=== PATIENT | male | born 1950 | race Caucasian/White ===

== ENCOUNTER 2017-09-06 08:06 | Day surgery (SDC) | payer MEDICARE ==
[2017-09-05 08:46] VITALS: BMI 29.1
[~2017-09-06 08:06] MED LIST: LACTATED RINGERS 1,000 ML IV SCH
[2017-09-06 08:45] VITALS: TEMP 98.1
[2017-09-06] MEDS ORDERED: LIDOCAINE 1% 20 ML VIAL (10MG/ML) FOR IV START INTRADERMA ONE (08:45)
[2017-09-06] MEDS ORDERED: LIDOCAINE 1% INJ 10MG/ML (20 ML MDV) ONE (08:55)
[2017-09-06] MEDS ORDERED: PROPOFOL 10 MG/ML 20 ML VIAL IV ONE (08:55)
--- NOTE | 2017-09-06 09:03 | P.GSHP ---
History of Present Illness H&P Date: 09/06/17 Chief Complaint: Screening colonoscopy This a 67-year-old male referred from Dr. Erwin. Patient presents today for screening colonoscopy. He denies any significant complaints. Past Medical History Past Medical History: No Reported History Additional Past Medical History / Comment(s): occ. gout History of Any Multi-Drug Resistant Organisms: None Reported Past Surgical History: Appendectomy Additional Past Surgical History / Comment(s): Colonoscopy Past Anesthesia/Blood Transfusion Reactions: No Reported Reaction Past Psychological History: No Psychological Hx Reported Smoking Status: Former smoker Past Alcohol Use History: None Reported Additional Past Alcohol Use History / Comment(s): quit smoking 1978 and alcohol 10 yrs ago Past Drug Use History: None Reported - Past Family History Mother Family Medical History: No Reported History Medications and Allergies Home Medications Medication Instructions Recorded Confirmed Type Indomethacin [Indocin] 50 mg PO DAILY PRN 09/05/17 09/05/17 History Probenecid/Colchicine 1 each PO DAILY PRN 09/05/17 09/05/17 History [Probenecid-Colchicine Tabs] Allergies Allergy/AdvReac Type Severity Reaction Status Date / Time codeine AdvReac Nausea & Verified 09/06/17 08:23 Vomiting Surgical - Exam Vital Signs Temp Pulse Resp BP Pulse Ox 98.1 F 92 18 141/92 95 09/06/17 08:42 09/06/17 08:42 09/06/17 08:42 09/06/17 08:42 09/06/17 08:42 - General well developed, no distress - Eyes PERRL - ENT normal pinna - Neck no masses - Respiratory normal expansion - Cardiovascular Rhythm: regular - Abdomen Abdomen: soft, non tender Assessment and Plan Assessment: We'll perform screening colonoscopy.
--- NOTE | 2017-09-06 09:19 | P.OP ---
Date of Procedure: 09/06/17 Preoperative Diagnosis: Incarcerated incisional hernia Umbilical hernia Postoperative Diagnosis: Incarcerated incisional hernia Incarcerated umbilical hernia Procedure(s) Performed: Laparoscopic robotic-assisted repair of incarcerated incisional hernia Laparoscopic findings repair of incarcerated umbilical hernia Partial omentectomy Anesthesia: MAC Surgeon: Leroy Rubio Estimated Blood Loss (ml): 5 Pathology: other (Omentum) Condition: stable Disposition: PACU Description of Procedure: The patient was placed on the operating table in the supine position. He received general anesthesia. His abdomen was prepped and draped usual fashion. Using a 5 mm optical trocar under direct visualization the peritoneal cavity was entered in the left upper quadrant. The abdomen was then insufflated. The laparoscope was placed back into the perineal cavity. Next a 8 mm robotic trocar was placed in the left lower quadrant and a 12 mm robotic trocar was placed in the left lateral position. The original 5 mm trocar was exchanged for a 8 mm robotic trocar. The patient's placed in the left side up position. And the patient was docked to the robot. The patient had an umbilical hernia and a incisional hernia located above the umbilicus. The incisional hernia was visualized. Using hook cautery the peritoneum over the incisional hernia was excised. The incarcerated omentum was withdrawn. The peritoneum over the umbilical hernia was dissected free. The nonviable omentum was transected using cautery. The fascial opening of the incisional and umbilical hernia was repaired using 0V LOC suture. Next a piece of 11 cm round ventral light ST mesh was placed into the. Cavity and secured with 2 OV lock suture. The patient was undocked the robot. The needles were retrieved. The omentum specimen was retrieved. The fascia of the 12 mm trocar site was closed with 0 Ethibond suture. Skin was closed interrupted 3-0 Monocryl suture. Dermabond dressings was applied. Patient tolerated procedure well and was sent to recovery room stable condition.
--- NOTE | 2017-09-06 09:24 | P.OP ---
Date of Procedure: 09/06/17 Preoperative Diagnosis: Screening colonoscopy Postoperative Diagnosis: Mild diverticulosis Procedure(s) Performed: Colonoscopy Anesthesia: MAC Surgeon: Leroy Rubio Pathology: none sent Condition: stable Disposition: PACU Description of Procedure: Patient's placed on the endoscopy table in the lateral position. He received IV sedation. Digital rectal exam was performed which revealed no abnormalities. The prostate was symmetric without nodules. The flexible colonoscope was then placed patient anus passed throughout the entire colon. The ileocecal valve was visually's. The cecum, ascending transverse colon appeared normal. In the descending and sigmoid there is mild diverticular changes. Scope was then brought back the rectum and this appeared normal. Scope was withdrawn for patient.
[2017-09-06 09:31] VITALS: BP 112/73
[2017-09-06 09:47] VITALS: PULSE 83; RESP 18
== END 2017-09-06 09:59 | disposition home or self-care (01) ==
LOC: ORWHC2ENDO 08:06
PROVIDERS: ATTEND Surgery
DX: Z12.11 Encounter for screening for malignant neoplasm of colon (principal); K57.90 Diverticulosis of intestine, part unspecified, without perforation or abscess without bleeding; Z87.891 Personal history of nicotine dependence; Z88.5 Allergy status to narcotic agent
CPT/HCPCS: J2001; J2704; G0121; 45378

== ENCOUNTER 2018-05-21 11:04 | Inpatient (IN) | payer MEDICARE ==
[2018-05-21] MEDS ORDERED: MAGNESIUM SULFATE SYG 4.06 MEQ/ML SYRINGE ONE (11:05)
[2018-05-21] MEDS ORDERED: EPINEPHrine 10 ML SYRINGE (0.1 MG/ML) ONE (11:05)
[2018-05-21] MEDS ORDERED: DEXTROSE 5% IN WATER 50 ML BAG ONE (11:05)
[2018-05-21] MEDS ORDERED: DEXTROSE 10 % IN WATER 250 ML BAG IV ONE (11:05)
[2018-05-21] MEDS ORDERED: SODIUM BICARB 8.4% 50 ML SYR (1 MEQ/ML) ONE (11:05)
[2018-05-21] MEDS ORDERED: LIDOCAINE 2% SYG (PF) 100 MG/5 ML ONE (11:05)
[2018-05-21] MEDS ORDERED: CALCIUM CHLORIDE 100 MG/ML 10 ML SYRINGE ONE (11:05)
[2018-05-21] MEDS ORDERED: AMIODARONE 50 MG/ML 3 ML VIAL IV ONE ×2 (11:05)
[2018-05-21] MEDS ORDERED: NITROGLYCERIN SL TABS 0.4 MG TAB SUBLINGUAL PRN (11:32)
[2018-05-21 11:36] LABS: Glucose,Whole Blood 180 mg/dL (75-99)
[2018-05-21 11:42] LABS: HGB 14.8 gm/dL (13.0-17.5); Hypochromasia Slight; MCH 30.5 pg (25.0-35.0); MCHC 30.2 g/dL (31.0-37.0); MCV 101.1 fL (80.0-100.0); Platelet Count 173 k/uL (150-450); RBC 4.84 m/uL (4.30-5.90); RDW 12.8 % (11.5-15.5)
[2018-05-21 11:49] LABS: Partial Thromboplastin Time 23.2 sec (22.0-30.0); Prothrombin Time 10.5 sec (9.0-12.0)
[2018-05-21 11:55] LABS: Albumin 3.5 g/dL (3.5-5.0); Calcium 8.7 mg/dL (8.4-10.2); Total Bilirubin 0.8 mg/dL (0.2-1.3)
[2018-05-21 11:56] LABS: Potassium 3.4 mmol/L (3.5-5.1)
[2018-05-21] MEDS ORDERED: AMIODARONE 450 MG in DEXTROSE 5% IN WATER 250 ML IV ONE ×2 (11:56)
--- NOTE | 2018-05-21 11:58 | XR ---
EXAMINATION TYPE: XR chest 1V portable DATE OF EXAM: 05/21/2018 HISTORY: chest pain. REFERENCE: NONE. FINDINGS: The patient is intubated. ET tube tip is 3.2 cm from the daniele. The heart is mildly enlarged. The lungs are clear. Pleural spaces are clear. IMPRESSION: MILD CARDIOMEGALY.
--- NOTE | 2018-05-21 12:11 | ED ---
General Adult HPI - General Chief complaint: Cardiac Arrest/CPR Stated complaint: cardiac arrest Time Seen by Provider: 05/21/18 11:30 Source: family, EMS, RN notes reviewed Mode of arrival: EMS Limitations: altered mental status, physical limitation - History of Present Illness Initial comments: Patient is an unresponsive 68-year-old male presenting to emergency Department as a priority 1 by EMS. Patient reportedly was sitting down with family member and suddenly became unresponsive. Bystander CPR was started. 911 was called around 10:30. EMS showed up at 1040. Patient was found to be in V. fib. Patient received 150 amiodarone as well as multiple epinephrine and attempts with shock. Patient arrives in V. fib and unresponsive. Patient has no reported medical history. - Related Data Home Medications Medication Instructions Recorded Confirmed Unknown Gout Medication 1 tab PO DAILY PRN 05/21/18 05/21/18 Allergies Allergy/AdvReac Type Severity Reaction Status Date / Time codeine AdvReac Nausea & Verified 05/21/18 11:31 Vomiting Review of Systems ROS Statement: Those systems with pertinent positive or pertinent negative responses have been documented in the HPI. ROS Other: All systems not noted in ROS Statement are negative. Limitations: ROS unobtainable due to patients medical condition Past Medical History Past Medical History: No Reported History Additional Past Medical History / Comment(s): occ. gout History of Any Multi-Drug Resistant Organisms: None Reported Past Surgical History: Appendectomy Additional Past Surgical History / Comment(s): Colonoscopy Past Anesthesia/Blood Transfusion Reactions: No Reported Reaction Past Psychological History: No Psychological Hx Reported Smoking Status: Former smoker Past Alcohol Use History: None Reported Past Drug Use History: None Reported - Past Family History Mother Family Medical History: No Reported History General Exam Limitations: altered mental status, physical limitation General appearance: obtunded Head exam: Present: atraumatic Eye exam: Present: other (Pupil slightly dilated and unresponsive) ENT exam: Present: normal oropharynx Neck exam: Present: normal inspection Respiratory exam: Present: other (Agonal respirations. Equal breath sounds with bagging insufflation. ET tube is present.) Cardiovascular Exam: Present: other (No spontaneous pulse.) GI/Abdominal exam: Present: soft. Absent: tenderness Extremities exam: Present: normal inspection Neurological exam: Present: other (Unresponsive. GCS 3.) Psychiatric exam: Present: other (Unresponsive) Skin exam: Present: cyanosis Course Vital Signs 05/21/18 05/21/18 05/21/18 11:21 11:30 11:45 Pulse Rate 63 36 L 81 Respiratory 28 H 20 20 Rate Blood Pressure 139/117 114/72 O2 Sat by Pulse Oximetry 05/21/18 12:00 Pulse Rate 69 Respiratory 19 Rate Blood Pressure 120/67 O2 Sat by Pulse 100 Oximetry - Reevaluation(s) Reevaluation #1: 05/21/18 12:10 Case was discussed with Dr. Prescott who will consult and come see patient. He feels unlikely patient will be candidate for emergent heart catheterization. Patient did have ice packs applied 05/21/18 12:15 Daughter is updated 05/21/18 12:21 EKG #2 at 1147 shows wide QRS rhythm with a rate of 82. QRS 168. QT 486. QTc 567. Left axis. Nonspecific intraventricular ventricular block. Inferior Q waves. EKG #3 at 1204 shows wide complex rhythm with a rate of 68. QRS 144. QT 418. QTC 444. Left axis. Nonspecific intraventricular block. Inferior Q waves. 05/21/18 12:22 Case was also discussed in detail with Dr. Horn, covering for Dr. Erwin who did come evaluate patient. 05/21/18 12:56 Dr. Prescott is present and will take patient to the [facility]. Dr. Stevens paged for consult. 05/21/18 13:02 Case was also discussed with Dr. Stevens, who will consult. 05/21/18 13:32 Prior to patient going to [facility] patient did arrest again. Patient was in V. fib. Patient shocked twice with return of circulation. Dr. Prescott is present and taking patient to the [facility]. EKG Findings - EKG Comments: EKG Findings:: Wide-complex irregular rhythm with a rate of 64. QRS 168. QT 682. QTC 703. Left axis. Nonspecific intraventricular block. Inferior Q waves. Medical Decision Making - Lab Data Result diagrams: 05/21/18 11:31 05/21/18 11:31 Lab Results 05/21/18 05/21/18 05/21/18 Range/Units 11:15 11:31 11:31 WBC 8.0 (3.8-10.6) k/uL RBC 4.84 (4.30-5.90) m/uL Hgb 14.8 (13.0-17.5) gm/dL Hct 49.0 (39.0-53.0) % MCV 101.1 H (80.0-100.0) fL MCH 30.5 (25.0-35.0) pg MCHC 30.2 L (31.0-37.0) g/dL RDW 12.8 (11.5-15.5) % Plt Count 173 (150-450) k/uL Neutrophils % (Manual) 25 % Band Neutrophils % 3 % Lymphocytes % (Manual) 66 % Monocytes % (Manual) 4 % Eosinophils % (Manual) 1 % Metamyelocytes % 1 % Myelocytes % 1 % Neutrophils # (Manual) 2.20 (1.3-7.7) k/uL Lymphocytes # (Manual) 5.28 H (1.0-4.8) k/uL Monocytes # (Manual) 0.32 (0-1.0) k/uL Eosinophils # (Manual) 0.08 (0-0.7) k/uL Metamyelocytes # (Man) 0.08 H (0) k/uL Myelocytes # (Manual) 0.08 H (0) k/uL Nucleated RBCs 0 (0-0) /100 WBC Manual Slide Review Performed Hypochromasia Slight PT (9.0-12.0) sec INR (<1.2) APTT (22.0-30.0) sec Sodium 143 (137-145) mmol/L Potassium 3.4 L (3.5-5.1) mmol/L Chloride 105 (98-107) mmol/L Carbon Dioxide 14 L (22-30) mmol/L Anion Gap 24 mmol/L BUN 21 H (9-20) mg/dL Creatinine 1.43 H (0.66-1.25) mg/dL Est GFR (CKD-EPI)AfAm 59 (>60 ml/min/1.73 sqM) Est GFR (CKD-EPI)NonAf 51 (>60 ml/min/1.73 sqM) Glucose 307 H (74-99) mg/dL POC Glucose (mg/dL) 180 H (75-99) mg/dL POC Glu [employer] Operator ID Jacinto Armstrong Calcium 8.7 (8.4-10.2) mg/dL Total Bilirubin 0.8 (0.2-1.3) mg/dL AST 99 H (17-59) U/L ALT 160 H (21-72) U/L Alkaline Phosphatase 38 (38-126) U/L CK-MB (CK-2) (0.0-2.4) ng/mL Troponin I (0.000-0.034) ng/mL Total Protein 6.0 L (6.3-8.2) g/dL Albumin 3.5 (3.5-5.0) g/dL TSH (0.465-4.680) mIU/L Free T4 (0.78-2.19) ng/dL Free T3 pg/mL (2.8-5.3) pg/ml 05/21/18 05/21/18 05/21/18 Range/Units 11:31 11:31 11:31 WBC (3.8-10.6) k/uL RBC (4.30-5.90) m/uL Hgb (13.0-17.5) gm/dL Hct (39.0-53.0) % MCV (80.0-100.0) fL MCH (25.0-35.0) pg MCHC (31.0-37.0) g/dL RDW (11.5-15.5) % Plt Count (150-450) k/uL Neutrophils % (Manual) % Band Neutrophils % % Lymphocytes % (Manual) % Monocytes % (Manual) % Eosinophils % (Manual) % Metamyelocytes % % Myelocytes % % Neutrophils # (Manual) (1.3-7.7) k/uL Lymphocytes # (Manual) (1.0-4.8) k/uL Monocytes # (Manual) (0-1.0) k/uL Eosinophils # (Manual) (0-0.7) k/uL Metamyelocytes # (Man) (0) k/uL Myelocytes # (Manual) (0) k/uL Nucleated RBCs (0-0) /100 WBC Manual Slide Review Hypochromasia PT 10.5 (9.0-12.0) sec INR 1.0 (<1.2) APTT 23.2 (22.0-30.0) sec Sodium (137-145) mmol/L Potassium (3.5-5.1) mmol/L Chloride (98-107) mmol/L Carbon Dioxide (22-30) mmol/L Anion Gap mmol/L BUN (9-20) mg/dL Creatinine (0.66-1.25) mg/dL Est GFR (CKD-EPI)AfAm (>60 ml/min/1.73 sqM) Est GFR (CKD-EPI)NonAf (>60 ml/min/1.73 sqM) Glucose (74-99) mg/dL POC Glucose (mg/dL) (75-99) mg/dL POC Glu [employer] Operator ID Calcium (8.4-10.2) mg/dL Total Bilirubin (0.2-1.3) mg/dL AST (17-59) U/L ALT (21-72) U/L Alkaline Phosphatase (38-126) U/L CK-MB (CK-2) 3.3 H (0.0-2.4) ng/mL Troponin I 0.074 H* (0.000-0.034) ng/mL Total Protein (6.3-8.2) g/dL Albumin (3.5-5.0) g/dL TSH 1.930 (0.465-4.680) mIU/L Free T4 0.82 (0.78-2.19) ng/dL Free T3 pg/mL 3.8 (2.8-5.3) pg/ml - Radiology Data Radiology results: image reviewed (Chest x-ray shows mild cardiac megaly) Critical Care Time Critical Care Time: Yes Total Critical Care Time: 55 Disposition Clinical Impression: Cardiac arrest, Ventricular fibrillation Disposition: ADMITTED IP TO THIS [facility] Condition: Critical Is patient prescribed a controlled substance at d/c from ED?: No Referrals: Avinash Erwin MD [Primary Care Provider] - 1-2 days Decision Time: 13:33
[2018-05-21 12:15] LABS: Band Neutrophils % 3 %; Eosinophils # (M) 0.08 k/uL (0-0.7); Lymphocytes # (M) 5.28 k/uL (1.0-4.8); Metamyelocytes # (M) 0.08 k/uL (0); Metamyelocytes % 1 %; Monocytes # (M) 0.32 k/uL (0-1.0); Myelocytes # (M) 0.08 k/uL (0); Myelocytes % 1 %; Neutrophils % (M) 25 %; Nucleated Red Blood Cells 0 /100 WBC (0-0); Total Cells Counted 200
[2018-05-21 12:19] LABS: Creatine Kinase MB 3.3 ng/mL (0.0-2.4)
[2018-05-21 12:28] LABS: Troponin I 0.074 ng/mL (0.000-0.034)
[2018-05-21 12:31] LABS: T4, Free (Free Thyroxine) 0.82 ng/dL (0.78-2.19)
[2018-05-21] MEDS ORDERED: POTASSIUM CHLORIDE 2 MEQ/ML 20 ML VIAL IV STA (12:47)
[2018-05-21] MEDS ORDERED: POTASSIUM CHLORIDE 20 MEQ in WATER FOR INJECTION 1 100ML.BAG IVPB STA (12:49)
[2018-05-21] MEDS ORDERED: fentaNYL (PF) 50 MCG/ML 2 ML AMP ONE (13:22)
[2018-05-21] MEDS ORDERED: LIDOCAINE 1% INJ 10MG/ML (20 ML MDV) ONE (13:22)
[2018-05-21] MEDS ORDERED: SODIUM CHLORIDE 0.9% 1,000 ML IV ONE (13:34)
[2018-05-21] MEDS ORDERED: LIDOCAINE 1% INJ 10MG/ML (20 ML MDV) SQ ONE (13:42)
[2018-05-21] MEDS ORDERED: LIDOCAINE 2% SYG (PF) 100 MG/5 ML IV ONE (13:42)
[2018-05-21] MEDS ORDERED: POTASSIUM CHLORIDE 20 MEQ/100 ML BAG IVPB ONE (13:45)
--- NOTE | 2018-05-21 13:45 | CT ---
EXAMINATION TYPE: CT brain wo con DATE OF EXAM: 05/21/2018 COMPARISON: NONE HISTORY: Cardiac arrest CT DLP: 2400.4 mGycm Automated exposure control for dose reduction was used. FINDINGS: The studies complete motion artifact in spite of repeating the scan multiple times. Central structures are midline. There is no evidence of hydrocephalus. No acute focal lesion, mass ef fect or midline shift is seen. I do not see evidence of intracranial blood. Visualized portions of the paranasal sinuses and mastoids are clear. The bony calvarium is intact. IMPRESSION: NO ACUTE INTRACRANIAL ABNORMALITY
[2018-05-21] MEDS ORDERED: LIDOCAINE 1% INJ 10MG/ML (10 ML MDV) IV ONE (13:52)
[2018-05-21] MEDS ORDERED: IOPAMIDOL-370 125ML BTL INJ ONE (14:09)
[2018-05-21] MEDS ORDERED: DEXTROSE 5% IN WATER 100 ML with AMIODARONE 150 MG IV ONE (14:10)
[2018-05-21] MEDS ORDERED: IV FLUID CONTINUATION 1,000 ML IV ONE (14:10)
[2018-05-21] MEDS ORDERED: LIDOCAINE-D5W PMX 2G/500ML 2,000 MG in DEXTROSE/WATER 1 500ML.BAG IV ONE (14:11)
[2018-05-21] MEDS ORDERED: FUROSEMIDE 10 MG/ML 4 ML VIAL ONE (14:20)
[2018-05-21] MEDS ORDERED: SODIUM BICARB 8.4% 50 ML VIAL (1 MEQ/ML) IV ONE (14:20)
[2018-05-21] MEDS ORDERED: METOPROLOL TARTRATE 5 MG/5 ML VIAL IVP ONE ×3 (14:22→14:33)
[2018-05-21 14:23] LABS: ABG HCO3 13 mmol/L (21-25); ABG PCO2 38 mmHg (35-45); ABG PO2 396 mmHg (83-108)
[2018-05-21 14:24] LABS: ABG Base Excess -15.6 mmol/L
[2018-05-21] MEDS ORDERED: FUROSEMIDE 10 MG/ML 4 ML VIAL IV ONE (14:24)
[2018-05-21] MEDS ORDERED: SODIUM CHLORIDE 0.9% 1,000 ML IV SCH (14:45)
[2018-05-21] MEDS ORDERED: POTASSIUM CHLORIDE 2 MEQ/ML 20 ML VIAL IVPB SCH (14:45)
[2018-05-21] MEDS ORDERED: LIDOCAINE-D5W PMX 2G/500ML 2,000 MG in DEXTROSE/WATER 1 500ML.BAG IV SCH (14:45)
[2018-05-21 15:04] LABS: Glucose,Whole Blood 283 mg/dL (75-99)
[2018-05-21 15:37] LABS: ABG TCO2 16 mmol/L (19-24)
[2018-05-21] MEDS ORDERED: PROPOFOL 1,000 MG in EMPTY BAG 1 BAG IV SCH (16:00)
[2018-05-21] MEDS ORDERED: POTASSIUM CHLORIDE 20 MEQ in WATER FOR INJECTION 1 100ML.BAG IVPB SCH (16:00)
[2018-05-21 16:17] VITALS: BMI 30.2
[2018-05-21] MEDS ORDERED: NALOXONE 0.4 MG/ML 1 ML VIAL IV PRN (16:21)
[2018-05-21] MEDS ORDERED: IPRATROPIUM-ALBUTEROL 3 ML NEB INHALATION PRN (16:21)
[2018-05-21] MEDS ORDERED: ACETAMINOPHEN IV (For NPO) 1,000 MG in EMPTY BAG 1 BAG IVPB PRN (16:21)
[2018-05-21] MEDS ORDERED: DEXTROSE 5% IN WATER 1,000 ML with SODIUM BICARB (1 MEQ/ML) 150 ML IV SCH (16:30)
--- NOTE | 2018-05-21 16:40 | XR ---
EXAMINATION TYPE: XR chest 1V portable DATE OF EXAM: 05/21/2018 COMPARISON: Today HISTORY: Check tube placement TECHNIQUE: Single frontal view of the chest is obtained. FINDINGS: There is nasogastric tube with the tip at the gastroesophageal junction. Endotracheal tube is 5.5 cm from the daniele. There is no heart failure. Costophrenic angles are clear. IMPRESSION: NG tube has tip near the gastroesophageal junction.
[2018-05-21] MEDS ORDERED: INSULIN ASPART 100 UNIT/ML 1 ML 10 ML VIAL SQ SCH (17:30)
[2018-05-21] MEDS ORDERED: METOPROLOL TARTRATE 5 MG/5 ML VIAL IVP SCH (18:00)
[2018-05-21 18:01] VITALS: BP 127/80; PULSE 75; RESP 20; TEMP 94.8
--- NOTE | 2018-05-21 18:16 | HP ---
HISTORY AND PHYSICAL I am covering for Dr. Erwin. CHIEF COMPLAINTS: Unresponsive. HISTORY OF PRESENT ILLNESS: This 68-year-old gentleman with no significant past medical history except history of colonoscopy being followed by Dr. Erwin, apparently was living with the family. Patient was found unresponsive. Bystander CPR was initiated. EMS was called. EMS found the patient was in atrial fibrillation. Multiple dose of amiodarone atrial fibrillation shocks were given and finally the patient was given amiodarone and then sinus restored. The patient being closely monitored. Patient mechanically intubated at this time. The patient being transferred to ICU at this time from the ER. Detailed history could not be taken. Most of the history taken from my discussion with staff as well as review of chart and discussion with the ER physician. Cardiology is planning emergent cardiac cath at this time. PAST MEDICAL HISTORY: No history of cardiac illness. MEDICATIONS: Medications per list and unknown. FAMILY HISTORY: Family history, social history and review of systems could not be taken. No history of smoking per chart. PHYSICAL EXAM: Patient is unresponsive. Pulse is 100. Blood pressure 130/90. Respirations 30. Temperature normal, pulse ox 99% on 70% FiO2. HEENT: Conjunctivae normal. Oral mucosa moist. Neck is no jugular venous distention. No carotid bruit. No lymph node enlargement. CARDIOVASCULAR: S1, S2 muffled. RESPIRATIONS: Breath sounds diminished in the bases. A few scattered rhonchi and crackles. ABDOMEN: Soft, nontender. No mass palpable. LEGS: No edema. No swelling. CENTRAL NERVOUS SYSTEM: The patient is mechanically sedated at this time. SKIN: No ulcer, rash or bleeding. JOINTS: No active deforming arthropathy. LABS: WBC 18.2, hemoglobin is 14.2, 101, otherwise ABGs noted. Sodium 140, potassium 3.4. Creatinine is 1.43. Magnesium 5.9 and troponin 0.074. ASSESSMENT: 1. Out of hospital cardiac arrest, possibly ventricular fibrillation, possibly coronary artery disease, rule out acute myocardial infarction. 2. Acute hypoxic respiratory failure on mechanical ventilation. 3. Respiratory acidosis. 4. Hypokalemia. 5. Increased creatinine with acute renal failure. 6. Troponin 0.074, rule out acute myocardial infarction. 7. History of colonoscopy. 8. Remote history of nicotine dependence. RECOMMENDATIONS AND DISCUSSION: In this 68-year-old gentleman who presented with multiple complex medical issues , we will monitor the patient closely, continue the current medications, management and symptomatic treatment. Recommend to continue with amiodarone drip and continue with monitoring. Proton pump inhibitors. DVT prophylaxis. Otherwise, I would also recommend repeat labs and consult Dr. Stevens for ICU management. Cardiology consultation for possible cardiac cath. Otherwise monitor blood sugars closely. Prognosis guarded because of multiple complex medical issues. Further recommendations to follow. Dr. Erwin will follow tomorrow. MMJEMALL / IJN: [id number] / MTDD
[2018-05-21] MEDS ORDERED: IPRATROPIUM-ALBUTEROL 3 ML NEB INHALATION SCH (20:00)
[2018-05-21] MEDS ORDERED: CHLORHEXIDINE GLUCONATE 15 ML CUP MUCOUS MEM SCH (21:00)
[2018-05-22] MEDS ORDERED: HEPARIN SODIUM,PORCINE 5,000 UNIT/ML 1 ML VIAL SQ SCH
[2018-05-22 07:21] LABS: ABG PH 7.15 (7.35-7.45)
[2018-05-22] MEDS ORDERED: PANTOPRAZOLE 40 MG/10 ML VIAL IV SCH (09:00)
--- NOTE | 2018-05-22 11:11 | CONS ---
CONSULTATION Mr. Peña is a 68-year-old gentleman who was seen in the emergency room for cardiac evaluation. The patient is currently intubated. The history was obtained from the emergency room records, emergency room physician as well as family members. This patient has been otherwise healthy. The patient was sitting down with the family members and he became unresponsive. Bystander CPR was started and EMS arrived within 6- 10 minutes and ACLS was continued. The patient was found to be in Vfib arrest. The patient received IV amiodarone, epinephrine, and several shocks and was brought to the emergency room. In the emergency room the CPR continued and patient required 3 or 4 times shocks for ventricular fibrillation. The patient subsequently obtained the cardiac rhythm which initially showed wide QRS complex. Subsequently, patient's blood pressure improved. An EKG was performed which showed intraventricular conduction delay. There was no definite evidence of any acute ST-segment elevation. The patient does not have any prior history of diabetes, hypertension, or prior myocardial infarction. Patient has been healthy and physically active. Extensive discussion was made with the family members and explained that because of the prolonged CPR and ACLS that the patient could have suffered anoxic encephalopathy, but in view that the patient had been otherwise healthy and his lab data are fairly normal with a creatinine of 1.3, we will proceed with a cardiac catheterization to rule out any acute coronary artery disease. The procedure and risks were fully explained to the family members. Before the patient was taken to the labor custodian the patient had another episode of ventricular fibrillation and the patient was shocked. A noncontrast CT scan was performed which did not show any evidence of hemorrhage or acute abnormality. The patient's lab data shows a creatinine of 1.4 and potassium is 3.4. PHYSICAL EXAMINATION: At present reveals a 68-year-old gentleman who is intubated. Blood pressure is 140/70 mmHg. HEENT examination is negative. Neck is supple. There is no increase in jugular venous pressure. Both the carotid pulses are felt. There is no bruit. Chest is symmetrical. PMI is not felt. First and second heart sounds are normal. Lungs are fairly clear to auscultation and percussion. Abdomen is soft. Extremities: Peripheral pulses are 2+. EKG shows normal sinus rhythm with intraventricular conduction delay. FINAL IMPRESSION: This patient is status post cardiac arrest with recurrent episodes of ventricular fibrillation and prolonged CPR and ACLS. At present, EKG does not show any evidence of acute ST-segment elevation myocardial infarction, but underlying significant coronary artery disease needs to be ruled out. The patient's family was fully explained that he may have suffered anoxic encephalopathy because of the prolonged CPR, but we will proceed with a cardiac catheterization with a definitive diagnosis after explaining the procedure and the risks. RHINA / DONATO: [id number] /
[2018-05-22 11:37] LABS: Hemoglobin A1C 5.4 % (4.0-6.0)
== END 2018-05-21 18:20 | disposition short-term general hospital (02) | DRG 308 ==
LOC: EC 11:04 → 2SICU 13:34
PROVIDERS: ADMIT Family Medicine; ATTEND Family Medicine
PROC: 0BH17EZ Insertion of Endotracheal Airway into Trachea, Via Natural or Artificial Opening (ICD-10-PCS; 2018-05-21)
PROC: 5A2204Z Restoration of Cardiac Rhythm, Single (ICD-10-PCS; 2018-05-21)
PROC: 5A1935Z Respiratory Ventilation, Less than 24 Consecutive Hours (ICD-10-PCS; principal; 2018-05-21 13:16)
DX: I49.01 Ventricular fibrillation (principal); J96.01 Acute respiratory failure with hypoxia; E87.2 Acidosis; N17.9 Acute kidney failure, unspecified; I46.9 Cardiac arrest, cause unspecified; E87.6 Hypokalemia; I48.91 Unspecified atrial fibrillation; Z87.891 Personal history of nicotine dependence; I45.4 Nonspecific intraventricular block; Z53.09 Procedure and treatment not carried out because of other contraindication
CPT/HCPCS: 31500; 36415; 51702; 70450; 71045; 80053; 82553; 82805; 83036; 83735; 84439; 84443; 84481; 84484; 85025; 85610; 85730; 93458; 94002; 99291